=== PATIENT | female | born 1995 | race African-American/Black ===

== ENCOUNTER 2020-06-21 18:55 | Emergency (ER) | payer SELFPAY ==
[~2020-06-21] VITALS: Ht 170.2 cm; Wt 77.0 kg
[2020-06-21 18:57] VITALS: BP 143/82
[2020-06-21] MEDS ORDERED: LIDOCAINE HCL/EPINEPHRINE 1%-EPI 1:100,000 10 ML VIAL IJ ONE (19:15)
[2020-06-21] MEDS ORDERED: BACITRACIN ZINC OINT UDPKT TOP ONE (19:15)
[2020-06-21] MEDS ORDERED: LIDOCAINE HCL/PF 1% 10 MG/ML 5ML VIAL IJ ONE (19:30)
== END 2020-06-21 20:12 | disposition home or self-care (01) ==
LOC: ER 18:55
DX: S01.411A Laceration without foreign body of right cheek and temporomandibular area, initial encounter (principal); W05.1XXA Fall from non-moving nonmotorized scooter, initial encounter; Y93.89 Activity, other specified; Y92.488 Other paved roadways as the place of occurrence of the external cause
CPT/HCPCS: 99283; J3490